=== PATIENT | male | born 1985 | race Caucasian/White ===

== ENCOUNTER 2023-04-28 15:57 | Emergency (ER) | payer SELFPAY ==
[2023-04-28 16:57] LABS: CORONAVIRUS COVID-19 NAA NEGATIVE (NEGATIVE); INFLUENZA A NAA NEGATIVE (NEGATIVE); INFLUENZA B NAA POSITIVE (NEGATIVE); RESPIRATORY SYNCYTIAL VIR NAA NEGATIVE (NEGATIVE)
== END 2023-04-28 17:38 | disposition home or self-care (01) ==
LOC: MW.ED 15:57 → EDSEX 15:57 → MW.ED 17:38
DX: J10.1 Influenza due to other identified influenza virus with other respiratory manifestations (principal)
CPT/HCPCS: 0241U; 71045; 99283

== ENCOUNTER 2024-06-17 08:34 | Emergency (ER) | payer OTHER ==
[2024-06-17] MEDS ORDERED: Prochlorperazine 10 MG/2 ML SDV IVPUSH ONE (09:40)
[2024-06-17] MEDS ORDERED: Ketorolac 30 MG/ML SDV IVPUSH ONE (09:40)
[2024-06-17] MEDS ORDERED: diphenhydrAMINE 50 MG/ML SDV IVPUSH ONE (09:40)
[2024-06-17] MEDS: Acetaminophen 500 MG Tab PO ONE (11:03)
[2024-06-17] MEDS: Ibuprofen 600 MG Tab PO ONE (11:03)
== END 2024-06-17 11:10 | disposition home or self-care (01) ==
LOC: MW.ED 08:34
DX: J39.9 Disease of upper respiratory tract, unspecified (principal); R03.0 Elevated blood-pressure reading, without diagnosis of hypertension; Z20.828 Contact with and (suspected) exposure to other viral communicable diseases; Z87.2 Personal history of diseases of the skin and subcutaneous tissue
CPT/HCPCS: 71045; 87428; 96374; 99283; A9270; J1100

== ENCOUNTER 2024-07-23 09:40 | Emergency (ER) | payer OTHER ==
[2024-07-23] MEDS: Ibuprofen 600 MG Tab PO ONE (10:59)
[2024-07-23] MEDS: Codeine/guaiFENesin 10-100 MG/5 ML Syrup 5 ML Cup PO ONE (11:01)
[2024-07-23 11:05] LABS: BASOPHILS ABSOLUTE AUTO 0.03 K/uL (0.00-0.20); BASOPHILS PERCENT AUTO 0.2 % (0.0-1.0); EOSINOPHILS ABSOLUTE AUTO 0.06 K/uL (0.00-0.45); EOSINOPHILS PERCENT AUTO 0.5 % (0.0-6.0); HEMATOCRIT 52.7 % (42.0-52.0); HEMOGLOBIN 18.5 g/dL (14.0-18.0); IMMATURE GRAN ABSOLUTE AUTO 0.04 K/uL (0.00-0.05); IMMATURE GRAN PERCENT AUTO 0.3 % (0.0-0.4); LYMPHOCYTES ABSOLUTE AUTO 0.62 K/uL (1.00-4.80); LYMPHOCYTES PERCENT AUTO 4.7 % (24.0-44.0); MEAN CORPUSCULAR HEMOGLOBIN 31.1 pg (28.0-32.0); MEAN CORPUSCULAR HGB CONC 35.1 g/dL (32.0-36.0); MEAN CORPUSCULAR VOLUME 88.7 fL (83.0-99.0); MEAN PLATELET VOLUME 8.5 fL (9.4-12.4); MONOCYTES ABSOLUTE AUTO 0.89 K/uL (0.00-0.80); MONOCYTES PERCENT AUTO 6.8 % (0.0-8.0); NEUTROPHILS ABSOLUTE AUTO 11.51 K/uL (1.80-7.70); NEUTROPHILS PERCENT AUTO 87.5 % (41.0-71.0); PLATELET COUNT,PLT 281 K/uL (150-400); RED BLOOD CELL COUNT 5.94 M/uL (4.52-5.90); WHITE BLOOD CELL COUNT,WBC 13.15 K/uL (3.9-11.3)
[2024-07-23 11:46] LABS: ALBUMIN 3.8 g/dL (3.4-5.0); BILIRUBIN TOTAL 0.6 mg/dL (0.2-1.0); CARBON DIOXIDE,CO2 25.1 mmol/L (21.0-32.0); CREATININE 1.1 mg/dL (0.8-1.3); EST CRCL DRUG DOSING (CG) 96.03 mL/min; POTASSIUM,K 4.3 mmol/L (3.5-5.1); PROTEIN TOTAL,TP 7.5 g/dL (6.4-8.2)
== END 2024-07-23 12:14 | disposition home or self-care (01) ==
LOC: MW.ED 09:40
DX: J06.9 Acute upper respiratory infection, unspecified (principal); Z79.899 Other long term (current) drug therapy
CPT/HCPCS: 36415; 71045; 80053; 85025; 87428; 99283; A9270